=== PATIENT | female | born 1995 | race Caucasian/White ===

== ENCOUNTER 2016-06-01 10:07 | Emergency (ER) | payer MEDICAID ==
[2016-06-01] MEDS ORDERED: NAPROXEN 250 MG TABLET PO ONE (11:58)
[2016-06-01] MEDS ORDERED: HYDROCOD/ACETAMIN 7.5-325 MG/15 ML ORAL SOLN UDCUP PO ONE (12:23)
--- NOTE | 2016-06-01 12:27 | ER Document Report ---
ED General - General Chief Complaint: Neck Pain >24hrs old Stated Complaint: NECK PAIN Mode of Arrival: Ambulatory Information source: Patient Notes: 20-year-old female presents with complaints of left lateral neck pain after cracking her neck. Patient denies any neurological deficits denies any numbness weakness. Patient notes it hurts to move her neck. TRAVEL OUTSIDE OF THE [place] IN LAST 30 DAYS: No - HPI Onset: Just prior to arrival Onset/Duration: Sudden Quality of pain: Achy Severity: Mild Pain Level: 1 Associated symptoms: Body/muscle aches Exacerbated by: Movement Relieved by: Denies Similar symptoms previously: No Recently seen / treated by doctor: No - Related Data Allergies/Adverse Reactions: No Known Allergies Allergy (Verified 06/01/16 10:30) Past Medical History - Social History Smoking Status: Never Smoker Cigarette use (# per day): No Chew tobacco use (# tins/day): No Smoking Education Provided: No Frequency of alcohol use: None Drug Abuse: None Family History: Reviewed & Not Pertinent Patient has suicidal ideation: No Patient has homicidal ideation: No Endocrine Medical History: Reports: Hx Diabetes Mellitus Type 1, Hx Diabetes Mellitus Type 2 Psychiatric Medical History: Reports: Hx Depression Surgical Hx: Negative - Immunizations Immunizations up to date: Yes Hx Diphtheria, Pertussis, Tetanus Vaccination: Yes Review of Systems - Review of Systems Notes: REVIEW OF SYSTEMS: CONSTITUTIONAL : Denies fever, chills, or sweats. Denies recent illness. EENT: Admits to posterior left lateral neck pain CARDIOVASCULAR: Denies chest pain. Denies palpitations or racing or irregular heart beat. Denies ankle edema. RESPIRATORY: Denies cough, cold, or chest congestion. Denies shortness of breath, difficulty breathing, or wheezing. GASTROINTESTINAL: Denies abdominal pain or distention. Denies nausea, vomiting , or diarrhea. Denies blood in vomitus, stools, or per rectum. Denies black, tarry stools. Denies constipation. GENITOURINARY: Denies difficulty urinating, painful urination, burning, frequency, blood in urine, or discharge. FEMALE GENITOURINARY: Denies vaginal bleeding, heavy or abnormal periods, irregular periods. Denies vaginal discharge or odor. MUSCULOSKELETAL: Denies back or neck pain or stiffness. Denies joint pain or swelling. SKIN: Denies rash, lesions or sores. HEMATOLOGIC : Denies easy bruising or bleeding. LYMPHATIC: Denies swollen, enlarged glands. NEUROLOGICAL: Denies confusion or altered mental status. Denies passing out or loss of consciousness. Denies dizziness or lightheadedness. Denies headache. Denies weakness or paralysis or loss of use of either side. Denies problems with gait or speech. Denies sensory loss, numbness, or tingling. Denies seizures. PSYCHIATRIC: Denies anxiety or stress. Denies depression, suicidal ideation, or homicidal ideation. ALL OTHER SYSTEMS REVIEWED AND NEGATIVE. Dictation was performed using [employer] recognition software PHYSICAL EXAMINATION: GENERAL: Well-appearing, well-nourished and in no acute distress. HEAD: Atraumatic, normocephalic. EYES: Pupils equal round and reactive to light, extraocular movements intact, conjunctiva are normal. ENT: mild lateral left neck pain on palpation no deformity step off NECK: Normal range of motion, supple without lymphadenopathy LUNGS: Breath sounds clear to auscultation bilaterally and equal. No wheezes rales or rhonchi. HEART: Regular rate and rhythm without murmurs ABDOMEN: Soft, nontender, nondistended abdomen. No guarding, no rebound. No masses appreciated. Female : deferred Musculoskeletal: Normal range of motion, no pitting or edema. No cyanosis. NEUROLOGICAL: Cranial nerves grossly intact. Normal speech, normal gait. Normal sensory, motor exams PSYCH: Normal mood, normal affect. SKIN: Warm, Dry, normal turgor, no rashes or lesions noted. Physical Exam - Vital signs Vitals: Temp Pulse Resp BP Pulse Ox 97.5 F 69 18 120/87 H 100 06/01/16 10:31 06/01/16 10:31 06/01/16 10:31 06/01/16 10:31 06/01/16 10:31 Course - Re-evaluation Re-evalutation: 06/01/16 12:51 X-ray was reviewed by myself and a second radiologist, there is questionable soft tissue swelling which may be from a hematoma patient otherwise has no neurological deficits in stable for discharge. She'll be given pain control and very close follow-up with primary care I have placed in a soft collar for comfort and instructed her to return immediately if she has any further issues or complaints After performing a Medical Screening Examination, I estimate there is LOW risk for INTRACRANIAL HEMORRHAGE, UNSTABLE SPINE FRACTURE, CENTRAL CORD SYNDROME, CAUDA EQUINA, THORACIC AORTIC DISSECTION, PNEUMOTHORAX, PERFORATED BOWEL, RUPTURED ABDOMINAL AORTIC ANEURYSM, ACUTE TENDON RUPTURE, COMPARTMENT SYNDROME, or OPEN FRACTURE, thus I consider the discharge disposition reasonable. Also, there is no evidence or peritonitis, sepsis, or toxicity. The patient and I have discussed the diagnosis and risks, and we agree with discharging home to follow-up with their primary doctor with the understanding that symptoms and presentations can change. We also discussed returning to the Emergency Department immediately if new or worsening symptoms occur. We have discussed the symptoms which are most concerning (e.g., bloody stool, fever, changing or worsening pain, vomiting) that necessitate immediate return. - Vital Signs Vital signs: Temp Pulse Resp BP Pulse Ox 97.5 F 69 18 120/87 H 100 06/01/16 10:31 06/01/16 10:31 06/01/16 10:31 06/01/16 10:31 06/01/16 10:31 - Diagnostic Test Radiology reviewed: Image reviewed, Reports reviewed - report given to the patient Discharge - Discharge Clinical Impression: Neck pain, Hematoma of muscle Condition: Stable Disposition: HOME, SELF-CARE Instructions: Neck Injury (Cervical Strain) ([facility]) Prescriptions: Hydrocodone/Acetaminophen [Lortab 7.5-325 mg/15 ml Oral Soln] 5 ml PO Q6H PRN # 30 ml PRN Reason: Referrals: EMMA WALLACE PA-C [Primary Care Provider] - Follow up as needed
[2016-06-01 12:58] VITALS: BP 122/83
== END 2016-06-01 12:58 | disposition home or self-care (01) ==
LOC: ER 10:07
DX: S10.93XA Contusion of unspecified part of neck, initial encounter (principal); M54.2 Cervicalgia; X58.XXXA Exposure to other specified factors, initial encounter
CPT/HCPCS: 99283; 72050; L0120; L0172

== ENCOUNTER 2016-11-10 22:56 | Inpatient (IN) | payer MEDICAID ==
[2016-11-10 23:55] LABS: APPEARANCE,URINE CLOUDY; BILIRUBIN,URINE NEGATIVE (NEGATIVE); GLUCOSE, URINE 50 mg/dL (NEGATIVE); KETONES,URINE 20 mg/dL (NEGATIVE); LEUKOCYTE ESTERASE,URINE LARGE (NEGATIVE); NITRITE,URINE NEGATIVE (NEGATIVE); PROTEIN,URINE 30 mg/dL (NEGATIVE); URINE SPECIFIC GRAVITY 1.009; UROBILINOGEN,URINE NEGATIVE mg/dL (<2.0)
[2016-11-11] MEDS ORDERED: NORMAL SALINE 1000 ML 1,000 ML IV PRN (00:07)
[2016-11-11] MEDS ORDERED: ONDANSETRON HCL INJ/PF 4 MG/2 ML SDV IV ONE (00:17)
[2016-11-11] MEDS ORDERED: MORPHINE SULFATE 10 MG/ML INJ IV ONE ×2 (00:17→03:06)
--- NOTE | 2016-11-11 00:19 | ER Document Report ---
ED General - General Chief Complaint: Flank Pain Stated Complaint: RIGHT FLANK PAIN Time Seen by Provider: 11/11/16 00:03 Mode of Arrival: Ambulatory Information source: Patient Notes: This is a 20-year-old female with a history of insulin-dependent diabetes who presents with a 2 day history of right flank pain and dysuria. She was seen by her primary care physician earlier today and given a prescription for Bactrim for suspected pyelonephritis. She states that she was ordered to have a CT done to rule out kidney stone but she was told she cannot have it done secondary to insurance issues. She states that since returning home this afternoon her back pain has increased. She has nausea but no vomiting. She has eaten a small amount of fruit at 1900 otherwise no oral intake today. No diarrhea. No prior history of kidney stone or pyelonephritis She is noncompliant with her diabetes medication, has not checked her blood sugar in several days, and has not had insulin today. TRAVEL OUTSIDE OF THE [place] IN LAST 30 DAYS: No - Related Data Allergies/Adverse Reactions: No Known Allergies Allergy (Verified 06/01/16 10:30) Past Medical History - General Information source: Patient, [facility] Records - Social History Smoking Status: Never Smoker Frequency of alcohol use: Rare Drug Abuse: None Family History: Reviewed & Not Pertinent Patient has suicidal ideation: No Patient has homicidal ideation: No Endocrine Medical History: Reports: Hx Diabetes Mellitus Type 2 Renal/ Medical History: Denies: Hx Peritoneal Dialysis Psychiatric Medical History: Reports: Hx Depression - Immunizations Immunizations up to date: Yes Hx Diphtheria, Pertussis, Tetanus Vaccination: Yes Review of Systems - Review of Systems Constitutional: See HPI. denies: Chills, Fever EENT: No symptoms reported Cardiovascular: No symptoms reported. denies: Chest pain Respiratory: No symptoms reported Gastrointestinal: See HPI, Nausea. denies: Vomiting Genitourinary: See HPI Musculoskeletal: No symptoms reported Skin: No symptoms reported Hematologic/Lymphatic: No symptoms reported Neurological/Psychological: No symptoms reported Physical Exam - Vital signs Vitals: Temp Pulse Resp BP Pulse Ox 98.9 F 156 H 20 128/84 H 99 11/10/16 23:00 11/10/16 23:00 11/10/16 23:00 11/10/16 23:00 11/10/16 23:00 - Notes Notes: PHYSICAL EXAMINATION: GENERAL: Well-appearing, well-nourished pleasant and conversant and in no acute distress. HEAD: Atraumatic, normocephalic. EYES: Pupils equal round and reactive to light, extraocular movements intact, sclera anicteric, conjunctiva are normal. ENT: nares patent, oropharynx clear without exudates. mucous membranes somewhat tachy NECK: Normal range of motion, supple without lymphadenopathy LUNGS: Breath sounds clear to auscultation bilaterally and equal. No wheezes rales or rhonchi. HEART: Tachycardic rate and regular rhythm without murmurs ABDOMEN: Soft, nontender, normoactive bowel sounds. No guarding, no rebound. No masses appreciated. BACK: mild R flank TTP EXTREMITIES: Normal range of motion, no pitting or edema. NEUROLOGICAL: No gross focal motor or sensory deficits appreciated PSYCH: Normal mood, normal affect. SKIN: Warm, Dry, normal turgor, no rashes or lesions noted. Course - Re-evaluation Re-evalutation: 11/11/16 03:31 Patient has had 2L NS IV, along with rocephin, and states she feels about the same. While sleeping, her heart rate is still elevated 110-120, and increased to 130 with sitting up. Repeat temp 99.8. With her history of noncompliance and poorly controlled DM, at this point recommend admission for further IV fluids and antibiotics for her pyelonephritis. Pateint and family comfortable with plan. I have paged the hospitalist for admission. - Vital Signs Vital signs: Temp Pulse Resp BP Pulse Ox 98.9 F 156 H 21 110/66 97 11/10/16 23:00 11/10/16 23:00 11/11/16 03:29 11/11/16 03:29 11/11/16 03:29 - Laboratory Result Diagrams: 11/11/16 00:08 11/11/16 00:08 Laboratory results interpreted by me: 11/10/16 11/11/16 11/11/16 23:32 00:08 00:08 WBC 15.1 H Absolute Neutrophils 11.3 H Absolute Monocytes 1.5 H VBG pH Sodium 131.9 L Chloride 93 L Glucose 207 H POC Glucose Urine Protein 30 H Urine Glucose (UA) 50 H Urine Ketones 20 H Urine Blood LARGE H Ur Leukocyte Esterase LARGE H Urine Ascorbic Acid 20 H 11/11/16 11/11/16 00:25 00:28 WBC Absolute Neutrophils Absolute Monocytes VBG pH 7.46 H Sodium Chloride Glucose POC Glucose 206 H Urine Protein Urine Glucose (UA) Urine Ketones Urine Blood Ur Leukocyte Esterase Urine Ascorbic Acid 11/11/16 01:53 Discharge - Discharge Clinical Impression: Pyelonephritis, Tachycardia Diabetes Qualifiers: Diabetes mellitus type: type 2 Diabetes mellitus complication status: with hyperglycemia 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 Yarbrough Unit Admitted: [facility]
[2016-11-11 00:28] LABS: ABSOLUTE LYMPHOCYTES (AUTO) 2.3 10^3/uL (0.5-4.7); ABSOLUTE MONOCYTES (AUTO) 1.5 10^3/uL (0.1-1.4); ABSOLUTE NEUT (AUTO) 11.3 10^3/uL (1.7-8.2); BASOPHILS % (AUTO) 0.3 % (0-2); HEMATOCRIT 46.3 % (36.0-47.0); HEMOGLOBIN 15.4 g/dL (12.0-15.5); HGB HCT DIFFERENCE -0.1; LYMPHOCYTES % (AUTO) 15.3 % (13-45); MEAN CORPUSCULAR HEMOGLOBIN 30.3 pg (27.0-33.4); MEAN CORPUSCULAR HGB CONC 33.3 g/dL (32.0-36.0); MEAN CORPUSCULAR VOLUME 91 fl (80-97); MONOCYTES % (AUTO) 9.7 % (3-13); RED BLOOD COUNT 5.09 10^6/uL (3.72-5.28); RED CELL DISTRIBUTION WIDTH 11.9 % (11.5-14.0); SEGMENTED NEUTROPHILS % (AUTO) 74.7 % (42-78); WHITE BLOOD COUNT 15.1 10^3/uL (4.0-10.5)
[2016-11-11] MEDS ORDERED: CEFTRIAXONE 1 GM/D5W RTU 50 ML IV ONE (00:31)
[2016-11-11 00:49] LABS: ALANINE AMINOTRANSFERASE 30 U/L (5-35); ALBUMIN 4.5 g/dL (3.7-5.6); ALKALINE PHOSPHATASE 101 U/L (50-135); ANION GAP 17 (5-19); ASPARTATE AMINO TRANSFERASE 15 U/L (5-30); BILIRUBIN,DIRECT 0.4 mg/dL (0.0-0.4); BILIRUBIN,TOTAL 0.9 mg/dL (0.2-1.3); BLOOD UREA NITROGEN 7 mg/dL (7-20); CALCIUM 9.3 mg/dL (8.4-10.2); CARBON DIOXIDE 22 mmol/L (22-30); CHLORIDE 93 mmol/L (98-107); CREATININE RESULT 0.85 mg/dL (0.52-1.25); GLUCOSE 207 mg/dL (75-110); LIPASE 84.9 U/L (23-300); POTASSIUM 3.8 mmol/L (3.6-5.0); SODIUM 131.9 mmol/L (137-145); TOTAL PROTEIN 7.6 g/dL (6.3-8.2)
[2016-11-11 01:04] LABS: VENOUS BLOOD BASE EXCESS 1.2 mmol/L; VENOUS BLOOD HCO3 24.4 mmol/L (20-32); VENOUS BLOOD PH 7.46 (7.30-7.42)
--- NOTE | 2016-11-11 02:22 | RADIOLOGY REPORT (SQ) ---
EXAM DESCRIPTION: CT LTD RENAL STONE PROTOCOL ON COMPLETED DATE/TIME: 11/11/2016 2:00 am REASON FOR STUDY: right flank pain/concern for infected stone COMPARISON: None. TECHNIQUE: CT scan of the abdomen and pelvis performed without intravenous or oral contrast. Images reviewed with lung, soft tissue, and bone windows. Reconstructed coronal and sagittal MPR images revi ewed. All images stored on PACS. All CT scanners at this facility use dose modulation, iterative reconstruction, and/or weight based d osing when appropriate to reduce radiation dose to as low as reasonably achievable (ALARA). [facility]: Dose Right [facility]: CareDose [facility]: Dose Right [facility]: Teradose 4D [facility]: Smart payasUgym RADIATION DOSE: 293 LIMITATIONS: None. FINDINGS: LOWER CHEST: No significant findings. No nodules or infiltrates. NON-CONTRASTED LIVER, SPLEEN, ADRENALS: Evaluation limited by lack of IV contrast. No identified sign ificant masses. PANCREAS: No masses. No peripancreatic inflammatory changes. GALLBLADDER: No identified stones by CT criteria. No inflammatory changes to suggest cholecystitis. RIGHT KIDNEY AND URETER: No suspicious masses. Assessment limited by lack of IV contrast. 0.4 cm an d 0.2 cm renal stone. No hydronephrosis or hydroureter. LEFT KIDNEY AND URETER: No suspicious masses. Assessment limited by lack of IV contrast. No signifi cant calcifications. No hydronephrosis or hydroureter. AORTA AND RETROPERITONEUM: No aneurysm. No retroperitoneal masses or adenopathy. BOWEL AND PERITONEAL CAVITY: No obvious masses or inflammatory changes. No free fluid. APPENDIX: Normal. PELVIS, BLADDER, AND ABDOMINAL WALL:No abnormal masses. No free fluid. Bladder normal. BONES: No significant findings. OTHER: No other significant finding. IMPRESSION: No acute findings. Small right nephrolithiasis. TECHNICAL DOCUMENTATION: JOB ID: [id number] Quality ID # [id number]: Final reports with documentation of one or more dose reduction techniques (e.g., Au tomated exposure control, adjustment of the mA and/or kV according to patient size, use of iterative reconstruction technique) 2010 [email or web address]- All Rights Reserved
[2016-11-11] MEDS ORDERED: NORMAL SALINE 1000 ML 1,000 ML IV ONE (03:17)
[2016-11-11] MEDS ORDERED: NORMAL SALINE 1000 ML 2,000 ML IV ONE (04:15)
[2016-11-11] MEDS ORDERED: DEXTROSE 40% GEL 15 GM TUBE PO PRN ×2 (04:58)
[2016-11-11] MEDS ORDERED: GLUCAGON,HUMAN RECOMB 1 MG INJ IM PRN (04:58)
[2016-11-11] MEDS ORDERED: DEXTROSE 50%-WATER 25 GM/50 ML DISP.SYRIN IV PRN ×2 (04:58)
[2016-11-11] MEDS ORDERED: MAGNESIUM HYDROXIDE SUSP 30 ML UDCUP PO PRN (04:59)
[2016-11-11 05:06] LABS: ADD ON TESTING BLD IN LAB ACKNOWLEDGE
--- NOTE | 2016-11-11 05:17 | PDOC H&P ---
History of Present Illness Admission Date/PCP: 11/11/16 04:10 Tung Patient complains of: rt flank pain History of Present Illness: MARTINA MONTESINOS is a 20 year old female with underlying mild anxiety and depression, without suicidal or homicidal ideation, type 1 diabetes mellitus , admittedly noncompliant with both medication and Accu-Chek regimen, but with no prior urinary tract pathology, including kidney stones or infection who presents to the emergency room for evaluation of a 2 day history of slowly progressive combination cramping and stabbing right flank pain and dysuria. Pain worsens with certain movements and any contact of the area of involvement. Was seen by her primary care provider on the and started on Bactrim. CT scan was reportedly ordered as an outpatient, but was not able to be performed due to her lack of insurance. After returning home back pain increased. Nausea but no vomiting. Shaking chills. No diarrhea. Patient has been discussed with emergency room physician who evaluated the patient. . Laboratory results are listed in [facility] [employer] and are reviewed. X-ray summary results are listed below, with full report(s) reviewed. . Social history/personal habits: Single. No children. Works at [employer]. No use of alcohol tobacco or illicit drugs. No known drug allergies. Home medications initially autopopulated into [email or web address] may not accurately reflect patient's true medications, dosages, and/or frequencies. pbx technician to reconcile medications. Unfortunately, patient not certain of all medications/dosages/frequencies. REVIEW OF SYSTEMS: Constitutional: See history and present illness. Eyes: Wears glasses ENT: No swallowing problems or complaints. Denies hearing loss. Pulmonary: No current complaints. Cardiovascular: No current complaints, including chest pain. Gastrointestinal: See history and present illness. Skin: No current complaints, including rashes. Hematologic: Denies easy bruising. Neurologic: No current complaints, including numbness or tingling. Musculoskeletal: No current or chronic joint complaints, such as arthritis. Psychiatric: Mild anxiety and depression. Denies suicidal or homicidal ideation. Endocrine: No current complaints, including polyuria. Genitourinary: Dysuria. PHYSICAL EXAMINATION: 5 feet 3 inches tall. 65 kg. BMI 25.4 kg/m. Blood pressure 109/66. Pulse 127, with patient finishing her third liter bolus of normal saline. 96% saturation on room air. Respirations are 24 and unlabored. Temperature 99.4. Slightly overweight otherwise well-developed well-nourished young female appearing approximately her stated age. Pleasant awake alert and cooperative. Appears to feel a bit under the weather, so to speak. Mildly anxious, without agitation. Emergency room nursing assistant Fernando is present. Skin is warm and dry. No grossly obvious evidence of rash in areas of skin examined. No subcutaneous nodules palpated. Mild facial acne. ENT: Hearing grossly normal to normal conversation. Tongue midline on protrusion pink and slightly tacky. Eyes: No scleral icterus. Pupils equal and reactive to light at 4 mm. [place] conjunctivae. Neck is supple and nontender to gentle active range of motion and palpation. Midline trachea. No palpable thyroid nodule mass enlargement or tenderness. Lymphatic: No palpable cervical or clavicular nodes. Neck and lymphatic exams limited by patient body habitus. Psychiatric: Reasonable insight into acute and chronic medical issues. Oriented to time location and why here. Lungs: Auscultation reveals clear and equal breath sounds bilaterally. No use of accessory respiratory muscles. Cardiovascular: Heart regular rate and rhythm, without gallop murmur or rub. No carotid or abdominal aortic bruits. No ankle or pedal edema. Faintly palpable dorsalis pedis pulses. Abdomen:soft slightly distended with positive bowel sounds. Unable to adequately evaluate abdomen for masses or organomegaly due to distention. Mild right flank and costovertebral angle tenderness. Otherwise, abdomen nontender to palpation. Extremities: Feet are warm and dry. No calf tenderness to compression. No grossly obvious visual evidence of calf swelling. Gentle manipulation of lower extremities fails to reveal any obvious evidence of injury or instability to knees hips or ankles. Neurologic: Moves upper extremities grossly normally. Patellar reflexes absent. Absent Babinski. Light touch is intact at feet. Dorsiflexion and plantarflexion of feet 5 / 5 and symmetric. Past Medical History Cardiac Medical History: Denies: Congestive Heart Failure, DVT, Myocardial Infarction, Hyperlipidema, Hypertension, Pulmonary Embolism Pulmonary Medical History: Denies: Asthma, Chronic Obstructive Pulmonary Disease (COPD), Sleep Apnea EENT Medical History: Reports: Eyes - Wears glasses Denies: Ears, Throat Neurological Medical History: Denies: Hemorrhagic CVA, Ischemic CVA, Seizures Endocrine Medical History: Reports: Diabetes Mellitus Type 1 Denies: Hyperthyroidism, Hypothyroidism GI Medical History: Denies: Cirrhosis, Gastroesophageal Reflux Disease, Hepatitis, Peptic Ulcer Disease Musculoskeltal Medical History: Reports: None Skin Medical History: Reports: None Psychiatric Medical History: Reports: Depression, General Anxiety Disorder Denies: Alcohol Dependency, Substance Abuse, Tobacco Dependency Hematology: Reports: None Infectious Medical History: Denies: Clostridium Difficile, Hepatitis B, Hepatitis C, Methicillin- Resistant Staph Aureus Past Surgical History Past Surgical History: Reports: None Social History Information Source: Patient, Emergency Med Personnel, [facility] Records Smoking Status: Never Smoker Frequency of Alcohol Use: None Drugs: None - Advance Directive Resuscitation Status: Full Code Surrogate healthcare decision maker:: Mother Family History Family History: Reviewed & Not Pertinent Parental Family History Reviewed: Yes - Mother diabetic. Uncertain health status of father. Children Family History Reviewed: NA Sibling(s) Family History Reviewed.: Yes - Diabetic. Medication/Allergy Home Medications: Insulin Aspart Protam & Aspart [Novolog Mix 70-30 Flexpen Syrn] 40 units SUBCUT BID 04/05/15 Sertraline HCl [Zoloft] mg PO DAILY 04/05/15 Hydrocodone/Acetaminophen [Lortab 7.5-325 mg/15 ml Oral Soln] 5 ml PO Q6H PRN # 30 ml 06/01/16 Allergies/Adverse Reactions: No Known Allergies Allergy (Verified 06/01/16 10:30) Physical Exam Vital Signs: Temp Pulse Resp BP Pulse Ox 99.8 F 156 H 22 109/66 96 11/11/16 04:00 11/10/16 23:00 11/11/16 04:01 11/11/16 04:00 11/11/16 04:01 Results Impressions: Limited or Localized CT 11/11/16 01:36 IMPRESSION: No acute findings. Small right nephrolithiasis. Assessment & Plan - Diagnosis (1) Hyponatremia Is this a current diagnosis for this admission?: YesPlan: Follow-up chemistry. (2) Pyelonephritis Is this a current diagnosis for this admission?: YesPlan: Rocephin. Blood cultures have been drawn. Urine culture to be obtained. I have strongly encouraged patient not to get out of bed without notifying staff , to avoid a fall with injury. Knee high SCDs for DVT prophylaxis, along with subcutaneous Lovenox. Impression and plans were discussed with patient, who concurs. Time spent in evaluation and management of patient: 65 minutes. (3) Sepsis Qualifiers: Sepsis type: sepsis due to unspecified organism Qualified Code(s): A41.9 - Sepsis, unspecified organism Is this a current diagnosis for this admission?: Yes (4) Diabetes mellitus type 1 Qualifiers: Diabetes mellitus complication status: without complication Qualified Code(s): E10.9 - Type 1 diabetes mellitus without complications Is this a current diagnosis for this admission?: YesPlan: Ice chips only at the present time.. Accu-Cheks with appropriate sliding scale coverage. Resume home medications as appropriate once these have been determined and reviewed. (5) Noncompliance with diabetes treatment Is this a current diagnosis for this admission?: Yes - Inpatient Certification Based on my medical assessment, after consideration of the patient's comorbidities, presenting symptoms, or acuity I expect that the services needed warrant INPATIENT care.: Yes I certify that my determination is in accordance with my understanding of Medicare's requirements for reasonable and necessary INPATIENT services [42 CFR 412.3e].: Yes Medical Necessity: Need Close Monitoring Due to Risk of Patient Decompensation, Need For IV Fluids, Need For Continuous Telemetry Monitoring, Need for IV Antibiotics, Risk of Complication if Not Cared For in Hospital Post Hospital Care: D/C or Transfer Summary
[2016-11-11 05:23] LABS: MAGNESIUM 1.7 mg/dL (1.6-2.3)
[2016-11-11 07:05] LABS: MEAN CORPUSCULAR VOLUME 91 fl (80-97)
[2016-11-11 07:12] LABS: ABSOLUTE LYMPHOCYTES (AUTO) 2.4 10^3/uL (0.5-4.7); ABSOLUTE NEUT (AUTO) 8.1 10^3/uL (1.7-8.2); BASOPHILS % (AUTO) 0.2 % (0-2); EOSINOPHILS % (AUTO) 0.1 % (0-6); HEMATOCRIT 37.9 % (36.0-47.0); HGB HCT DIFFERENCE 0.5; LYMPHOCYTES % (AUTO) 20.9 % (13-45); MEAN CORPUSCULAR HEMOGLOBIN 30.6 pg (27.0-33.4); MEAN CORPUSCULAR HGB CONC 33.7 g/dL (32.0-36.0); MONOCYTES % (AUTO) 8.9 % (3-13); RED BLOOD COUNT 4.18 10^6/uL (3.72-5.28); RED CELL DISTRIBUTION WIDTH 11.7 % (11.5-14.0); SEGMENTED NEUTROPHILS % (AUTO) 69.9 % (42-78); WHITE BLOOD COUNT 11.6 10^3/uL (4.0-10.5)
[2016-11-11 07:14] LABS: HEMOGLOBIN 12.8 g/dL (12.0-15.5)
[2016-11-11 07:24] LABS: ANION GAP 11 (5-19); BLOOD UREA NITROGEN 6 mg/dL (7-20); CALCIUM 7.6 mg/dL (8.4-10.2); CARBON DIOXIDE 22 mmol/L (22-30); CHLORIDE 105 mmol/L (98-107); CREATININE RESULT 0.72 mg/dL (0.52-1.25); GLUCOSE 166 mg/dL (75-110); POTASSIUM 3.7 mmol/L (3.6-5.0); SODIUM 137.8 mmol/L (137-145)
[2016-11-11] MEDS: MORPHINE SULFATE 10 MG/ML INJ IV PRN ×2 (08:57→19:31)
[2016-11-11] MEDS: KETOROLAC TROMETHAMINE INJ/PF 30 MG/1 ML SDV IV PRN ×2 (08:57→15:58)
[2016-11-11] MEDS: DOCUSATE SODIUM 100 MG CAPSULE PO SCH ×2 (09:01→17:14)
[2016-11-11] MEDS: ENOXAPARIN SODIUM INJ 40 MG/0.4 ML DISP.SYRIN SUBCUT SCH (09:05)
[2016-11-11] MEDS ORDERED: CEFTRIAXONE 1 GM/D5W RTU 50 ML IV SCH (10:00)
--- NOTE | 2016-11-11 11:06 | PDOC PROGRESS REPORT ---
Subjective Progress Note for:: 11/11/16 Subjective:: reason for visit: f/u pyelonephritis, cystitis, sepsis, diabetes hospital course: from H/P "MARTINA MONTESINOS is a 20 year old female with underlying mild anxiety and depression, without suicidal or homicidal ideation, type 1 diabetes mellitus, admittedly noncompliant with both medication and Accu-Chek regimen, but with no prior urinary tract pathology, including kidney stones or infection who presents to the emergency room for evaluation of a 2 day history of slowly progressive combination cramping and stabbing right flank pain and dysuria. Pain worsens with certain movements and any contact of the area of involvement. Was seen by her primary care provider on the and started on Bactrim. CT scan was reportedly ordered as an outpatient, but was not able to be performed due to her lack of insurance. After returning home back pain increased. Nausea but no vomiting. Shaking chills. No diarrhea." I inherited her care this morning, nurse called to report worsening Rt flank pain she describes as sharp, stabbing, constant but with waves of intensity asctd with nausea and sweats, radiating into her abdomen, worse with palpation, better with certain positions. she denies chest pain or palpitations and diarrhea. ROS: all systems reviewed, see above, remaining systems negative. Physical Exam Vital Signs: Temp Pulse Resp BP Pulse Ox 99.3 F 130 H 20 109/61 95 11/11/16 07:15 11/11/16 07:15 11/11/16 07:15 11/11/16 07:15 11/11/16 07:15 Intake & Output 11/10/16 11/11/16 11/12/16 06:59 06:59 06:59 Intake Total 0 Balance 0 Weight 66.6 kg General appearance: PRESENT: mild distress, well-developed, well-nourished Head exam: PRESENT: atraumatic, normocephalic Eye exam: ABSENT: conjunctival injection, scleral icterus Mouth exam: PRESENT: dry mucosa, neck supple, other - ketones evident on her breath Neck exam: PRESENT: full ROM. ABSENT: tracheal deviation Respiratory exam: PRESENT: clear to auscultation kunal. ABSENT: accessory muscle use Cardiovascular exam: PRESENT: RRR, tachycardia. ABSENT: systolic murmur Pulses: PRESENT: normal radial pulses, normal dorsalis pedis pul Vascular exam: PRESENT: normal capillary refill GI/Abdominal exam: PRESENT: normal bowel sounds, soft, tenderness - Rt lower quadrant. ABSENT: distended, firm Gentrourinary exam: PRESENT: other - CVA tender and tender over rt kidney lower pole Extremities exam: ABSENT: calf tenderness, pedal edema Musculoskeletal exam: PRESENT: ambulatory, full ROM Neurological exam: PRESENT: alert, awake, oriented to person, oriented to place , oriented to time Psychiatric exam: PRESENT: anxious, appropriate affect, normal mood Focused psych exam: ABSENT: delusional, psychomotor agitation Skin exam: PRESENT: warm. ABSENT: dry - clammy Results Laboratory Results: 11/11/16 06:33 11/11/16 06:33 11/11/16 11/11/16 06:33 06:33 WBC 11.6 H RBC 4.18 Hgb 12.8 D Hct 37.9 MCV 91 MCH 30.6 MCHC 33.7 RDW 11.7 Plt Count 167 Seg Neutrophils % 69.9 Lymphocytes % 20.9 Monocytes % 8.9 Eosinophils % 0.1 Basophils % 0.2 Absolute Neutrophils 8.1 Absolute Lymphocytes 2.4 Absolute Monocytes 1.0 Absolute Eosinophils 0.0 Absolute Basophils 0.0 Sodium 137.8 Potassium 3.7 Chloride 105 Carbon Dioxide 22 Anion Gap 11 BUN 6 L Creatinine 0.72 Est GFR ( Amer) > 60 Est GFR (Non-Af Amer) > 60 Glucose 166 H Calcium 7.6 L Impressions: Limited or Localized CT 11/11/16 01:36 IMPRESSION: No acute findings. Small right nephrolithiasis. Status: Image reviewed by me - agree with rads, limited by lack of IV contrast Assessment & Plan - Diagnosis (1) Pyelonephritis Is this a current diagnosis for this admission?: YesPlan: worse; increase rocephin to 2gms daily and monitor for effect; f/u urine and blood cultures and adjust abx accordingly (2) Sepsis Qualifiers: Sepsis type: sepsis due to unspecified organism Qualified Code(s): A41.9 - Sepsis, unspecified organism Is this a current diagnosis for this admission?: YesPlan: worse; evidenced by leukocytosis, tachycardia and source. continue aggressive fluid resuscitation and abx with careful monitoring for ketosis (3) Diabetes Qualifiers: Diabetes mellitus type: type 2 Diabetes mellitus complication status: with hyperglycemia Diabetes mellitus intermodal customer service insulin use: with intermodal customer service use Qualified Code(s): E11.65 - Type 2 diabetes mellitus with hyperglycemia; Z79.4 - terminal operations manager (current) use of insulin Is this a current diagnosis for this admission?: YesPlan: add long acting insulin, I fear the development of DKA as I can already smell the ketones on her breath. she has no prior hx of same but severity of her infection raises the possibility. continue high dose IVFs. f/u BMP later today (4) Hyponatremia Is this a current diagnosis for this admission?: YesPlan: mild and improved with IVFs - Time Time Spent with patient: 25-34 minutes Medications reviewed and adjusted accordingly: Yes Anticipated discharge: Home Within: within 72 hours
[2016-11-11] MEDS: INSULIN GLARGINE,HUM.REC.ANLOG 300 UNIT/3 ML INSULN.PEN SUBCUT SCH (11:52)
[2016-11-11] MEDS: INSULIN LISPRO 100 UNIT/ML 3 ML VIAL SUBCUT PRN (11:55)
[2016-11-11] MEDS: ACETAMINOPHEN 325 MG TABLET PO PRN (14:24)
[2016-11-11 16:55] LABS: ANION GAP 10 (5-19); BLOOD UREA NITROGEN 5 mg/dL (7-20); CALCIUM 7.9 mg/dL (8.4-10.2); CARBON DIOXIDE 21 mmol/L (22-30); CHLORIDE 109 mmol/L (98-107); CREATININE RESULT 0.59 mg/dL (0.52-1.25); GLUCOSE 172 mg/dL (75-110); POTASSIUM 3.9 mmol/L (3.6-5.0)
[2016-11-11] MEDS: NORMAL SALINE 1000 ML 1,000 ML IV PRN (19:32)
[2016-11-11] MEDS: CEFTRIAXONE 2 GM/D5W RTU 2 GM/50 ML RTUPB IV SCH (21:47)
[2016-11-12] MEDS: NORMAL SALINE 1000 ML 1,000 ML IV PRN ×2 (00:04→04:41)
[2016-11-12] MEDS: MORPHINE SULFATE 10 MG/ML INJ IV PRN ×2 (00:04→16:06)
[2016-11-12] MEDS: ACETAMINOPHEN 325 MG TABLET PO PRN ×3 (00:24→21:59)
[2016-11-12] MEDS: KETOROLAC TROMETHAMINE INJ/PF 30 MG/1 ML SDV IV PRN ×2 (05:59→16:05)
[2016-11-12 06:29] LABS: ABSOLUTE MONOCYTES (AUTO) 0.8 10^3/uL (0.1-1.4); ABSOLUTE NEUT (AUTO) 7.2 10^3/uL (1.7-8.2); BASOPHILS % (AUTO) 0.3 % (0-2); EOSINOPHILS % (AUTO) 0.1 % (0-6); HEMATOCRIT 38.8 % (36.0-47.0); HEMOGLOBIN 13.2 g/dL (12.0-15.5); HGB HCT DIFFERENCE 0.8; LYMPHOCYTES % (AUTO) 19.6 % (13-45); MEAN CORPUSCULAR HEMOGLOBIN 30.9 pg (27.0-33.4); MEAN CORPUSCULAR VOLUME 91 fl (80-97); MONOCYTES % (AUTO) 8.3 % (3-13); RED BLOOD COUNT 4.28 10^6/uL (3.72-5.28); RED CELL DISTRIBUTION WIDTH 11.9 % (11.5-14.0); SEGMENTED NEUTROPHILS % (AUTO) 71.7 % (42-78); WHITE BLOOD COUNT 10.1 10^3/uL (4.0-10.5)
[2016-11-12 06:50] LABS: ANION GAP 12 (5-19); BLOOD UREA NITROGEN 4 mg/dL (7-20); CALCIUM 7.9 mg/dL (8.4-10.2); CARBON DIOXIDE 19 mmol/L (22-30); CHLORIDE 107 mmol/L (98-107); CREATININE RESULT 0.62 mg/dL (0.52-1.25); GLUCOSE 133 mg/dL (75-110); POTASSIUM 3.9 mmol/L (3.6-5.0); SODIUM 137.9 mmol/L (137-145)
--- NOTE | 2016-11-12 10:03 | PDOC PROGRESS REPORT ---
Subjective Progress Note for:: 11/12/16 Subjective:: reason for visit: f/u pyelonephritis, cystitis, sepsis, diabetes hospital course: from H/P "MARTINA MONTESINOS is a 20 year old female with underlying mild anxiety and depression, without suicidal or homicidal ideation, type 1 diabetes mellitus, admittedly noncompliant with both medication and Accu-Chek regimen, but with no prior urinary tract pathology, including kidney stones or infection who presents to the emergency room for evaluation of a 2 day history of slowly progressive combination cramping and stabbing right flank pain and dysuria. Pain worsens with certain movements and any contact of the area of involvement. Was seen by her primary care provider on the and started on Bactrim. CT scan was reportedly ordered as an outpatient, but was not able to be performed due to her lack of insurance. After returning home back pain increased. Nausea but no vomiting. Shaking chills. No diarrhea." I inherited her care the next morning, nurse called to report worsening Rt flank pain she describes as sharp, stabbing, constant but with waves of intensity asctd with nausea and sweats, radiating into her abdomen, worse with palpation, better with certain positions. this is some better with initiation of analgesics. she now c/o "I feel swollen" and "heaviness in my chest, its hard to breathe, especially while lying flat" which is what the staff indicate is her preferred position as she has gone so far as to request bed mckenzie rather than get up to the bed for toileting. she denies chest pain or palpitations and diarrhea. ROS: all systems reviewed, see above, remaining systems negative. Physical Exam Vital Signs: Temp Pulse Resp BP Pulse Ox 98.8 F 113 H 16 120/78 97 11/12/16 08:31 11/12/16 08:31 11/12/16 08:31 11/12/16 08:31 11/12/16 08:31 Intake & Output 11/11/16 11/12/16 11/13/16 06:59 06:59 06:59 Intake Total 0 5385 Output Total 1 Balance 0 5384 Weight 66.6 kg General appearance: PRESENT: no distress, well-developed, well-nourished, generalized nonpitting edema about the hands and face particularly Head exam: PRESENT: atraumatic, normocephalic Eye exam: ABSENT: conjunctival injection, scleral icterus Mouth exam: PRESENT: moist mucosa, neck supple, other - ketones no longer evident on her breath Neck exam: PRESENT: full ROM. ABSENT: tracheal deviation Respiratory exam: PRESENT: crackles at the bases that clear somewhat with deep inspiration, IS on the other side of the room away from her reach ABSENT: accessory muscle use Cardiovascular exam: PRESENT: RRR, tachycardia. ABSENT: systolic murmur Pulses: PRESENT: normal radial pulses, normal dorsalis pedis pul Vascular exam: PRESENT: normal capillary refill GI/Abdominal exam: PRESENT: normal bowel sounds, soft, tenderness - Rt lower quadrant. ABSENT: distended, firm Gentrourinary exam: PRESENT: other - CVA tender and tender over rt kidney lower pole Extremities exam: ABSENT: calf tenderness, pedal edema Musculoskeletal exam: PRESENT: strength 5/5, full ROM Neurological exam: PRESENT: alert, awake, oriented to person, oriented to place , oriented to time Psychiatric exam: PRESENT: anxious, appropriate affect, normal mood Focused psych exam: ABSENT: delusional, psychomotor agitation Skin exam: PRESENT: warm. moist and clammy Results Laboratory Results: 11/12/16 05:58 11/12/16 05:58 11/11/16 11/12/16 11/12/16 16:27 05:58 05:58 WBC 10.1 RBC 4.28 Hgb 13.2 Hct 38.8 MCV 91 MCH 30.9 MCHC 34.0 RDW 11.9 Plt Count 136 L Seg Neutrophils % 71.7 Lymphocytes % 19.6 Monocytes % 8.3 Eosinophils % 0.1 Basophils % 0.3 Absolute Neutrophils 7.2 Absolute Lymphocytes 2.0 Absolute Monocytes 0.8 Absolute Eosinophils 0.0 Absolute Basophils 0.0 Sodium 140.0 137.9 Potassium 3.9 3.9 Chloride 109 H 107 Carbon Dioxide 21 L 19 L Anion Gap 10 12 BUN 5 L 4 L Creatinine 0.59 0.62 Est GFR ( Amer) > 60 > 60 Est GFR (Non-Af Amer) > 60 > 60 Glucose 172 H 133 H Calcium 7.9 L 7.9 L Assessment & Plan - Diagnosis (1) Pyelonephritis Is this a current diagnosis for this admission?: YesPlan: stable but not back to baseline; continue rocephin to 2gms daily and monitor for effect; f/u urine and blood cultures and adjust abx accordingly (2) Sepsis Qualifiers: Sepsis type: sepsis due to unspecified organism Qualified Code(s): A41.9 - Sepsis, unspecified organism Is this a current diagnosis for this admission?: YesPlan: improved but not resolved; evidenced by leukocytosis, tachycardia and source. SL fluid due to volume overload and 3rd spacing and continue abx (3) Diabetes Qualifiers: Diabetes mellitus type: type 2 Diabetes mellitus complication status: with hyperglycemia Diabetes mellitus termite control technician insulin use: with termite control technician use Qualified Code(s): E11.65 - Type 2 diabetes mellitus with hyperglycemia; Z79.4 - supervisor intermediates (current) use of insulin Is this a current diagnosis for this admission?: YesPlan: add long acting insulin, I fear the development of DKA as I can already smell the ketones on her breath. she has no prior hx of same but severity of her infection raises the possibility. (4) Hyponatremia Is this a current diagnosis for this admission?: YesPlan: resolved with IVFs (5) Atelectasis of both lungs Is this a current diagnosis for this admission?: YesPlan: new; encouraged IS use and increase activity (6) Acute respiratory failure with hypoxia Is this a current diagnosis for this admission?: YesPlan: new; 2/2 above and volume overload with 3rd spacing, no evidence clinically for pulm edema though. SL IVFs and continue supplemental O2 prn, encourage increase in activity and IS use - Time Time Spent with patient: 35 or more minutes Medications reviewed and adjusted accordingly: Yes Anticipated discharge: Home Within: within 48 hours
[2016-11-12] MEDS: INSULIN GLARGINE,HUM.REC.ANLOG 300 UNIT/3 ML INSULN.PEN SUBCUT SCH (11:39)
[2016-11-12] MEDS: DOCUSATE SODIUM 100 MG CAPSULE PO SCH ×2 (11:40→17:10)
[2016-11-12] MEDS: ENOXAPARIN SODIUM INJ 40 MG/0.4 ML DISP.SYRIN SUBCUT SCH (11:40)
[2016-11-12] MEDS: INSULIN LISPRO 100 UNIT/ML 3 ML VIAL SUBCUT PRN ×3 (14:13→21:59)
[2016-11-12] MEDS: CEFTRIAXONE 2 GM/D5W RTU 2 GM/50 ML RTUPB IV SCH (21:58)
[2016-11-13] MEDS: KETOROLAC TROMETHAMINE INJ/PF 30 MG/1 ML SDV IV PRN (05:18)
[2016-11-13] MEDS: MORPHINE SULFATE 10 MG/ML INJ IV PRN (08:16)
[2016-11-13] MEDS: PROMETHAZINE HCL 25 MG TABLET PO PRN ×3 (08:16→18:39)
[2016-11-13] MEDS: ENOXAPARIN SODIUM INJ 40 MG/0.4 ML DISP.SYRIN SUBCUT SCH (08:22)
[2016-11-13] MEDS: DOCUSATE SODIUM 100 MG CAPSULE PO SCH ×2 (09:32→18:28)
[2016-11-13] MEDS: INSULIN GLARGINE,HUM.REC.ANLOG 300 UNIT/3 ML INSULN.PEN SUBCUT SCH (09:35)
--- NOTE | 2016-11-13 10:53 | PDOC PROGRESS REPORT ---
Subjective Progress Note for:: 11/13/16 Subjective:: reason for visit: f/u pyelonephritis, cystitis, sepsis, diabetes hospital course: from H/P "MARTINA MONTESINOS is a 20 year old female with underlying mild anxiety and depression, without suicidal or homicidal ideation, type 1 diabetes mellitus, admittedly noncompliant with both medication and Accu-Chek regimen, but with no prior urinary tract pathology, including kidney stones or infection who presents to the emergency room for evaluation of a 2 day history of slowly progressive combination cramping and stabbing right flank pain and dysuria. Pain worsens with certain movements and any contact of the area of involvement. Was seen by her primary care provider on the and started on Bactrim. CT scan was reportedly ordered as an outpatient, but was not able to be performed due to her lack of insurance. After returning home back pain increased. Nausea but no vomiting. Shaking chills. No diarrhea." I inherited her care the next morning, nurse called to report worsening Rt flank pain she describes as sharp, stabbing, constant but with waves of intensity asctd with nausea and sweats, radiating into her abdomen, worse with palpation, better with certain positions. this is some better with initiation of analgesics. she c/o "I feel swollen" and "heaviness in my chest, its hard to breathe, especially while lying flat", which is what the staff indicate is her preferred position as she has gone so far as to request bed mckenzie rather than get up to the bed for toileting, some better this morning but still requiring supplemental O2 for symptom relief. she denies chest pain or palpitations and diarrhea. still having fevers and malaise ROS: all systems reviewed, see above, remaining systems negative. Physical Exam Vital Signs: Temp Pulse Resp BP Pulse Ox 98.3 F 102 H 20 118/70 93 11/13/16 04:15 11/13/16 07:00 11/13/16 04:15 11/13/16 04:15 11/13/16 04:15 Intake & Output 11/12/16 11/13/16 11/14/16 06:59 06:59 06:59 Intake Total 5385 520 Output Total 1 422 Balance 5384 98 Weight 67.2 kg General appearance: PRESENT: no distress, well-developed, well-nourished, generalized nonpitting edema about the hands and face particularly Head exam: PRESENT: atraumatic, normocephalic Eye exam: ABSENT: conjunctival injection, scleral icterus Mouth exam: PRESENT: moist mucosa, neck supple, other - ketones no longer evident on her breath Neck exam: PRESENT: full ROM. ABSENT: tracheal deviation Respiratory exam: PRESENT: crackles at the bases that clear somewhat with deep inspirationABSENT: accessory muscle use Cardiovascular exam: PRESENT: RRR, tachycardia. ABSENT: systolic murmur Pulses: PRESENT: normal radial pulses, normal dorsalis pedis pul Vascular exam: PRESENT: normal capillary refill GI/Abdominal exam: PRESENT: normal bowel sounds, soft, tenderness - Rt lower quadrant. ABSENT: distended, firm Gentrourinary exam: PRESENT: other - CVA tender and tender over rt kidney lower pole Extremities exam: ABSENT: calf tenderness, pedal edema Musculoskeletal exam: PRESENT: strength 5/5, full ROM Neurological exam: PRESENT: alert, awake, oriented to person, oriented to place , oriented to time Psychiatric exam: PRESENT: appropriate affect, normal mood Focused psych exam: ABSENT: delusional, psychomotor agitation Skin exam: PRESENT: warm. moist and clammy Results Laboratory Results: 11/12/16 05:58 11/12/16 05:58 11/11/16 06:07 Clean Catch Midstream Urine Culture - Final NO GROWTH 2 DAYS Assessment & Plan - Diagnosis (1) Pyelonephritis Is this a current diagnosis for this admission?: Yes (2) Sepsis Qualifiers: Sepsis type: sepsis due to unspecified organism Qualified Code(s): A41.9 - Sepsis, unspecified organism Is this a current diagnosis for this admission?: Yes (3) Diabetes Qualifiers: Diabetes mellitus type: type 2 Diabetes mellitus complication status: with hyperglycemia Diabetes mellitus intermediate insulin use: with intermediate use Qualified Code(s): E11.65 - Type 2 diabetes mellitus with hyperglycemia; Z79.4 - correction (current) use of insulin Is this a current diagnosis for this admission?: Yes (4) Hyponatremia Is this a current diagnosis for this admission?: Yes (5) Atelectasis of both lungs Is this a current diagnosis for this admission?: Yes (6) Acute respiratory failure with hypoxia Is this a current diagnosis for this admission?: Yes - Time Time Spent with patient: 15-24 minutes Anticipated discharge: Home Within: within 24 hours - Plan Summary Plan Summary: i remain hopeful she will improve enough by morning to go home at that time. otherwise she is stable and slowly progressing
[2016-11-13] MEDS ORDERED: HYDROCODONE/ACETAMINOPHEN 5-325 MG TABLET PO PRN (10:54)
[2016-11-13] MEDS: INSULIN LISPRO 100 UNIT/ML 3 ML VIAL SUBCUT PRN (18:38)
[2016-11-13] MEDS: CEFTRIAXONE 2 GM/D5W RTU 2 GM/50 ML RTUPB IV SCH (21:51)
[2016-11-14 07:30] LABS: ABSOLUTE EOSINOPHILS # (AUTO) 0.1 10^3/uL (0.0-0.6); ABSOLUTE LYMPHOCYTES (AUTO) 1.9 10^3/uL (0.5-4.7); ABSOLUTE MONOCYTES (AUTO) 0.6 10^3/uL (0.1-1.4); BASOPHILS % (AUTO) 0.3 % (0-2); EOSINOPHILS % (AUTO) 1.4 % (0-6); HEMATOCRIT 38.6 % (36.0-47.0); HEMOGLOBIN 13.2 g/dL (12.0-15.5); LYMPHOCYTES % (AUTO) 21.7 % (13-45); MEAN CORPUSCULAR HEMOGLOBIN 30.6 pg (27.0-33.4); MEAN CORPUSCULAR HGB CONC 34.2 g/dL (32.0-36.0); MEAN CORPUSCULAR VOLUME 90 fl (80-97); MONOCYTES % (AUTO) 6.6 % (3-13); RED BLOOD COUNT 4.31 10^6/uL (3.72-5.28); RED CELL DISTRIBUTION WIDTH 12.4 % (11.5-14.0); WHITE BLOOD COUNT 8.5 10^3/uL (4.0-10.5)
[2016-11-14] MEDS: DOCUSATE SODIUM 100 MG CAPSULE PO SCH (10:18)
[2016-11-14] MEDS: INSULIN GLARGINE,HUM.REC.ANLOG 300 UNIT/3 ML INSULN.PEN SUBCUT SCH (10:21)
[2016-11-14] MEDS: ENOXAPARIN SODIUM INJ 40 MG/0.4 ML DISP.SYRIN SUBCUT SCH (10:25)
[2016-11-14 12:16] VITALS: BP 112/73
--- NOTE | 2016-11-14 15:14 | PDOC DISCHARGE SUMMARY ---
General - Admit/Disc Date/PCP Admission Date/Primary Care Provider: 11/11/16 04:59 Discharge Date: 11/14/16 - Discharge Diagnosis (1) Pyelonephritis Is this a current diagnosis for this admission?: YesSummary: by physical exam, culture negative; continue course of 3rd gen ceph's as started while here; stay hydrated. sent home with short course of analgesics and antiemetics. return to the ED for worsening symptoms. (2) Sepsis Is this a current diagnosis for this admission?: YesSummary: resolved with IVFs and abx. (3) Diabetes Is this a current diagnosis for this admission?: YesSummary: resume home regimen (4) Hyponatremia Is this a current diagnosis for this admission?: YesSummary: resolved with IVFs (5) Atelectasis of both lungs Is this a current diagnosis for this admission?: YesSummary: resolved with IS and increased activity; ok to take IS home and continue use (6) Acute respiratory failure with hypoxia Is this a current diagnosis for this admission?: YesSummary: resolved; 2/2 atelectasis - Additional Information Resuscitation Status: Full Code Discharge Diet: As Tolerated, Diabetic Discharge Activity: Activity As Tolerated Home Medications: Dulaglutide [Trulicity] 1.5 mg SQ .CLARIFY 11/11/16 Insulin Aspart [Novolog Insulin (Aspart) 100 unit/mL] 12 unit SUBCUT AC Insulin Detemir [Levemir Flextouch] 40 unit SQ DAILY 11/11/16 Acetaminophen [Tylenol 325 mg Tablet] 650 mg PO Q4HP PRN tablet 11/14/16 Cefpodoxime Proxetil [Vantin 100 mg Tablet] 1 tab PO Q12 #20 tab 11/14/16 Hydrocodone/Acetaminophen [[place]ide 5-325 mg Tablet] 1 tab PO Q6HP PRN #14 tablet 11/14/16 Promethazine HCl [Phenergan 25 mg Tablet] 12.5 mg PO Q6HP PRN #10 tablet History of Present Illness Patient complains of: rt flank pain and dysuria History of Present Illness: MARTINA MONTESINOS is a 21 year old female from H/P "MARTINA MONTESINOS is a 20 year old female with underlying mild anxiety and depression, without suicidal or homicidal ideation, type 1 diabetes mellitus, admittedly noncompliant with both medication and Accu-Chek regimen, but with no prior urinary tract pathology, including kidney stones or infection who presents to the emergency room for evaluation of a 2 day history of slowly progressive combination cramping and stabbing right flank pain and dysuria. Hospital Course Hospital Course: Pain worsens with certain movements and any contact of the area of involvement. Was seen by her primary care provider on the and started on Bactrim. CT scan was reportedly ordered as an outpatient, but was not able to be performed due to her lack of insurance. After returning home back pain increased. Nausea but no vomiting. Shaking chills. No diarrhea." I inherited her care the next morning, nurse called to report worsening Rt flank pain she describes as sharp, stabbing, constant but with waves of intensity asctd with nausea and sweats, radiating into her abdomen, worse with palpation, better with certain positions. this is some better with initiation of analgesics. she c/o "I feel swollen" and "heaviness in my chest, its hard to breathe, especially while lying flat", which is what the staff indicate is her preferred position as she has gone so far as to request bed mckenzie rather than get up to the bed for toileting, some better this morning but still requiring supplemental O2 for symptom relief. she denies chest pain or palpitations and diarrhea. still having fevers and malaise Physical Exam Vital Signs: Temp Pulse Resp BP Pulse Ox 98.2 F 96 18 112/73 98 11/14/16 12:14 11/14/16 12:14 11/14/16 12:14 11/14/16 12:14 11/14/16 12:14 Intake & Output 11/13/16 11/14/16 11/15/16 06:59 06:59 06:59 Intake Total 520 815 Output Total 422 Balance 98 815 Weight 67.2 kg 67.3 kg General appearance: PRESENT: no acute distress, well-developed, well-nourished Mouth exam: PRESENT: moist Respiratory exam: PRESENT: clear to auscultation kunal, unlabored Cardiovascular exam: PRESENT: RRR. ABSENT: systolic murmur GI/Abdominal exam: PRESENT: normal bowel sounds, soft, tenderness - CVA and Rt flank tender but better Neurological exam: PRESENT: alert, awake, oriented to person, oriented to place , oriented to time Psychiatric exam: PRESENT: depressed, flat affect Results Laboratory Results: 11/14/16 06:40 11/12/16 05:58 11/14/16 11/14/16 06:40 06:40 WBC 8.5 RBC 4.31 Hgb 13.2 Hct 38.6 MCV 90 MCH 30.6 MCHC 34.2 RDW 12.4 Plt Count 210 Seg Neutrophils % 70.0 Lymphocytes % 21.7 Monocytes % 6.6 Eosinophils % 1.4 Basophils % 0.3 Absolute Neutrophils 6.0 Absolute Lymphocytes 1.9 Absolute Monocytes 0.6 Absolute Eosinophils 0.1 Absolute Basophils 0.0 C-Reactive Protein 191.0 H Impressions: Limited or Localized CT 11/11/16 01:36 IMPRESSION: No acute findings. Small right nephrolithiasis. Qualifiers PATEINT BEING DISCHARGED WITH ANY OF THE FOLLOWING DIAGNOSIS?: No VTE patient discharged on overlapping Therapy?: No Reason(s) for not prescribing Overlap Therapy:: Not indicated Plan Discharge Plan: d/c home with continued abx, stay hydrated, treat fever prn with tylenol, return to the ED for worsening condition. Time Spent: Greater than 30 Minutes
== END 2016-11-14 13:19 | disposition home or self-care (01) | DRG 871 ==
LOC: ER 22:56 → EH 11-11 04:10 → UNDOADMIN 11-11 04:10 → EH 11-11 04:59 → 3S 11-11 05:33 → EH 11-11 05:33
PROVIDERS: ADMIT Family Medicine; ATTEND Family Medicine
DX: A41.9 Sepsis, unspecified organism (principal); J96.01 Acute respiratory failure with hypoxia; N12 Tubulo-interstitial nephritis, not specified as acute or chronic; E87.1 Hypo-osmolality and hyponatremia; E10.65 Type 1 diabetes mellitus with hyperglycemia; F41.1 Generalized anxiety disorder; F32.9 Major depressive disorder, single episode, unspecified; L70.9 Acne, unspecified; Z91.14 Patient's other noncompliance with medication regimen; Z91.19 Patient's noncompliance with other medical treatment and regimen; Z79.4 Long term (current) use of insulin; Z79.899 Other long term (current) drug therapy; Z83.3 Family history of diabetes mellitus
CPT/HCPCS: 36415; 76380; 80048; 80053; 81001; 82803; 82962; 83605; 83690; 83735; 84703; 85025; 86140; 87040; 87086; 94799; 96361; 96365; 96375; 96376; 99285; J0696; J1650; J1815; J1885; J2270; J2405; J3490; J7030

== ENCOUNTER 2016-12-22 14:38 | Emergency (ER) | payer MEDICAID, OTHER ==
--- NOTE | 2016-12-22 14:57 | ER Document Report ---
ED Medical Screen (RME) - General Chief Complaint: Psych Problem Stated Complaint: SHIRLEY DIAZ Time Seen by Provider: 12/22/16 14:55 Notes: Patient with a history of depression presents today with thoughts of wanting to harm herself. Mom states she found the patient cutting herself. Patient denies any type of ingestions. TRAVEL OUTSIDE OF THE [place] IN LAST 30 DAYS: No - Related Data Allergies/Adverse Reactions: No Known Allergies Allergy (Verified 12/22/16 14:55) Past Medical History - Social History Chew tobacco use (# tins/day): No Frequency of alcohol use: Occasional Drug Abuse: Cocaine, Marijuana - Past Medical History Cardiac Medical History: Denies: Hx Congestive Heart Failure, Hx DVT, Hx Heart Attack, Hx Hypercholesterolemia, Hx Hypertension, Hx Pulmonary Embolism Pulmonary Medical History: Denies: Hx Asthma, Hx COPD, Hx Sleep Apnea Neurological Medical History: Denies: Hx Seizures Endocrine Medical History: Reports: Hx Diabetes Mellitus Type 1, Hx Diabetes Mellitus Type 2. Denies: Hx Hyperthyroidism, Hx Hypothyroidism Renal/ Medical History: Denies: Hx Peritoneal Dialysis GI Medical History: Denies: Hx Cirrhosis, Hx Gastroesophageal Reflux Disease, Hx Hepatitis Psychiatric Medical History: Reports: Hx Depression Infectious Medical History: Denies: Hx C-Diff, Hx Hepatitis, Hx MRSA Surgical Hx: Negative - Immunizations Immunizations up to date: Yes Hx Diphtheria, Pertussis, Tetanus Vaccination: Yes Physical Exam - Vital signs Vitals: Temp Pulse Resp BP Pulse Ox 97.9 F 97 17 131/87 H 99 12/22/16 14:48 12/22/16 14:48 12/22/16 14:48 12/22/16 14:48 12/22/16 14:48 Course - Vital Signs Vital signs: Temp Pulse Resp BP Pulse Ox 97.9 F 97 17 131/87 H 99 12/22/16 14:48 12/22/16 14:48 12/22/16 14:48 12/22/16 14:48 12/22/16 14:48
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
[2016-12-22 15:27] LABS: ABSOLUTE BASOPHILS # (AUTO) 0.1 10^3/uL (0.0-0.2); ABSOLUTE EOSINOPHILS # (AUTO) 0.1 10^3/uL (0.0-0.6); ABSOLUTE LYMPHOCYTES (AUTO) 2.3 10^3/uL (0.5-4.7); ABSOLUTE MONOCYTES (AUTO) 0.5 10^3/uL (0.1-1.4); ABSOLUTE NEUT (AUTO) 7.5 10^3/uL (1.7-8.2); BASOPHILS % (AUTO) 0.5 % (0-2); HEMATOCRIT 47.4 % (36.0-47.0); HEMOGLOBIN 16.1 g/dL (12.0-15.5); HGB HCT DIFFERENCE 0.9; LYMPHOCYTES % (AUTO) 21.7 % (13-45); MEAN CORPUSCULAR HEMOGLOBIN 30.8 pg (27.0-33.4); MEAN CORPUSCULAR VOLUME 91 fl (80-97); MONOCYTES % (AUTO) 4.7 % (3-13); RED BLOOD COUNT 5.23 10^6/uL (3.72-5.28); RED CELL DISTRIBUTION WIDTH 13.2 % (11.5-14.0); SEGMENTED NEUTROPHILS % (AUTO) 72.1 % (42-78); WHITE BLOOD COUNT 10.4 10^3/uL (4.0-10.5)
[2016-12-22 15:51] LABS: ALANINE AMINOTRANSFERASE 28 U/L (9-52); ALBUMIN 4.9 g/dL (3.5-5.0); ALKALINE PHOSPHATASE 127 U/L (38-126); ANION GAP 14 (5-19); ASPARTATE AMINO TRANSFERASE 13 U/L (14-36); BLOOD UREA NITROGEN 13 mg/dL (7-20); CALCIUM 10.5 mg/dL (8.4-10.2); CARBON DIOXIDE 28 mmol/L (22-30); CHLORIDE 96 mmol/L (98-107); CREATININE RESULT 0.66 mg/dL (0.52-1.25); POTASSIUM 4.6 mmol/L (3.6-5.0)
[2016-12-22 15:52] LABS: ALCOHOL < 10 mg/dL (NONE DETECTED); BILIRUBIN,DIRECT 0.3 mg/dL (0.0-0.4); BILIRUBIN,TOTAL 0.8 mg/dL (0.2-1.3); TOTAL PROTEIN 8.2 g/dL (6.3-8.2)
[2016-12-22 15:59] LABS: GLUCOSE 409 mg/dL (75-110)
[2016-12-22] MEDS ORDERED: INSULIN REG, HUMAN 100 UNIT/ML 3 ML VIAL (PYX) SUBCUT ONE (16:03)
[2016-12-22] MEDS ORDERED: INSULIN DETEMIR 100 UNIT/ML 3 ML PEN SUBCUT ONE (16:36)
[2016-12-22 16:40] LABS: APPEARANCE,URINE CLEAR; BILIRUBIN,URINE NEGATIVE (NEGATIVE); GLUCOSE, URINE >=500 mg/dL (NEGATIVE); KETONES,URINE NEGATIVE (NEGATIVE); LEUKOCYTE ESTERASE,URINE NEGATIVE (NEGATIVE); NITRITE,URINE NEGATIVE (NEGATIVE); PROTEIN,URINE NEGATIVE (NEGATIVE); URINE SPECIFIC GRAVITY 1.032; UROBILINOGEN,URINE NEGATIVE mg/dL (<2.0)
[2016-12-22] MEDS ORDERED: VENLAFAXINE HCL 37.5 MG CAP.SR.24H PO SCH (16:45)
[2016-12-22 16:56] LABS: URINE BARBITURATES SCREEN NEGATIVE; URINE METHADONE SCREEN NEGATIVE; URINE OPIATES LOW NEGATIVE; URINE PHENCYCLIDINE SCREEN NEGATIVE
--- NOTE | 2016-12-22 17:21 | EKG REPORT ---
SEVERITY:- NORMAL ECG - SINUS RHYTHM : Confirmed by: Jenny Koroma MD 22-Dec-2016 17:21:05
[2016-12-22] MEDS ORDERED: VENLAFAXINE HCL 37.5 MG CAP.SR.24H PO ONE (17:30)
[2016-12-22] MEDS ORDERED: BUSPIRONE HCL 10 MG TABLET PO SCH (22:00)
[2016-12-22] MEDS ORDERED: INSULIN DETEMIR 100 UNIT/ML 3 ML PEN SUBCUT SCH (22:00)
[2016-12-23] MEDS ORDERED: DIPH/PERTUSS(ACELL)/TETANUS VAC/PF 0.5 ML SYR (>=10YO) IM ONE (00:01)
[2016-12-23] MEDS ORDERED: INSULIN REG, HUMAN 100 UNIT/ML 3 ML VIAL (PYX) SUBCUT SCH (08:00)
[2016-12-23] MEDS ORDERED: BUSPIRONE HCL 10 MG TABLET PO SCH (08:00)
--- NOTE | 2016-12-23 09:51 | ER Document Report ---
Doctor's Note Notes: 12/23/16 09:48 Medical rounds: Chart reviewed and patient interviewed briefly. Vital signs are stable. She continues to be mildly hyperglycemic, otherwise laboratory values are satisfactory. Patient is alert, coherent, and conversant. She denies somatic complaints. She is medically stable, pending evaluation by psychosocial team.
[2016-12-23] MEDS ORDERED: VENLAFAXINE HCL 37.5 MG CAP.SR.24H PO SCH (10:00)
[2016-12-23 11:07] VITALS: BP 116/88
== END 2016-12-23 11:07 | disposition home or self-care (01) ==
LOC: ER 14:38
DX: S61.512A Laceration without foreign body of left wrist, initial encounter (principal); S61.511A Laceration without foreign body of right wrist, initial encounter; R42 Dizziness and giddiness; Z79.899 Other long term (current) drug therapy; X83.8XXA Intentional self-harm by other specified means, initial encounter; E11.65 Type 2 diabetes mellitus with hyperglycemia
CPT/HCPCS: 93005; 99284; 36415; 82962; 80307 ×4; 84703; 85025; 80053; 81001; 93010; J1815 ×3; J3490 ×2